=== PATIENT | female | born 1950 | race Hispanic/Latino ===

== ENCOUNTER → 2023-11-24 | Outpatient (CLI) | payer OTHER ==
[~2023-11-24] MED LIST: IOHEXOL 350 MG/ML 100ML INFUS..BTL IV ONE
== END | disposition home or self-care (01) ==
LOC: RAH 09:25
PROVIDERS: ATTEND Internal Medicine Gastroenterology
DX: K57.30 Diverticulosis of large intestine without perforation or abscess without bleeding (principal); N32.89 Other specified disorders of bladder; K44.9 Diaphragmatic hernia without obstruction or gangrene; C18.9 Malignant neoplasm of colon, unspecified; M47.815 Spondylosis without myelopathy or radiculopathy, thoracolumbar region; L92.9 Granulomatous disorder of the skin and subcutaneous tissue, unspecified; I70.90 Unspecified atherosclerosis
CPT/HCPCS: 71270; 74178; Q9967